=== PATIENT | female | born 1980 | race Caucasian/White ===

== ENCOUNTER 2022-11-21 13:15 | Emergency (ER) | payer MEDICAID ==
[~2022-11-21] VITALS: Ht 172.7 cm; Wt 105.7 kg
[2022-11-21 13:40] VITALS: BP 141/76
[2022-11-21] MEDS ORDERED: IBUPROFEN 600 MG TAB PO ONE (14:50)
--- NOTE | 2022-11-21 15:19 | NUR ---
AMB. TO BED 8 WITH NO ACUTE DISTRESS
[2022-11-21 15:43] LABS: BASOPHILS # (AUTO) 0.1 K/uL (0.00-0.22); BASOPHILS % (AUTO) 0.8 % (0.0-2.0); EOSINOPHILS # (AUTO) 0.1 K/uL (0-0.4); EOSINOPHILS % (AUTO) 1.3 % (0.0-4.0); HEMATOCRIT 35.2 % (36-48); HEMOGLOBIN 11.3 g/dL (12.0-16.0); LYMPHOCYTES # (AUTO) 2.6 K/uL (2.5-16.5); LYMPHOCYTES % (AUTO) 23.6 % (20.5-51.1); MEAN CORPUSCULAR HEMOGLOBIN 26 pg (27-31); MEAN CORPUSCULAR HGB CONC 32 g/dL (33-37); MEAN CORPUSCULAR VOLUME 81.6 fL (80-94); MONOCYTES # (AUTO) 0.7 K/uL (0.8-1.0); MONOCYTES % (AUTO) 6.7 % (1.7-9.3); NEUTROPHILS # (AUTO) 7.5 K/uL (1.8-7.7); NEUTROPHILS % (AUTO) 67.6 % (42.2-75.2); PLATELET COUNT (AUTO) 287 K/uL (140-450); RED BLOOD CELL COUNT(AUTO) 4.31 MIL/uL (4.20-5.40); RED CELL DISTRIBUTION WIDTH 15.9 % (11.6-13.7); WHITE BLOOD COUNT (AUTO) 11.1 K/uL (4.8-10.8)
[2022-11-21] MEDS ORDERED: IBUPROFEN 600 MG TAB ONE (15:59)
--- NOTE | 2022-11-21 16:11 | NUR ---
PT C/O CP X 1WK ON LT SIDE W/INCRESE PAIN AT TOUCH SINCE THIS AM. DENIES, ROSA, DIZZINESS, NVD. NAD.
[2022-11-21 16:21] LABS: ALBUMIN 3.7 g/dL (3.4-5.0); ANION GAP 12.8 (8-16); ASPARTATE AMINOTRANSFERASE 22 U/L (15-37); CARBON DIOXIDE 25.8 mmol/L (21-32); CHLORIDE 106 mmol/L (98-107); CREATININE 0.7 mg/dL (0.6-1.3); GFR ARICAN-AMERICAN 119 mL/min (>90); GLUCOSE 97 mg/dL (74-106); LIPASE 114 U/L (73-393); POTASSIUM 3.6 mmol/L (3.5-5.1); SODIUM SERUM 141 mmol/L (136-145); TOTAL BILIRUBIN 0.1 mg/dL (0.0-1.0); UREA NITROGEN, BLOOD 8 mg/dL (7-18)
--- NOTE | 2022-11-21 16:58 | NUR ---
PATIENT AMBULATED TO RESTROOM.
[2022-11-21] MEDS ORDERED: IBUP-2213 PO (17:09)
[2022-11-21 17:38] VITALS: BP 133/74
--- NOTE | 2022-11-21 17:40 | NUR ---
Patient discharged with v/s stable. Written and verbal after care instructions given. Patient alert, oriented and verbalized understanding of instructions. Ambulatory with steady gait. All questions addressed prior to discharge. ID band removed. Patient advised to follow up with PMD. Rx of IBUPROFEN 600MG given. Opportunity to ask questions provided and answered.
== END 2022-11-21 17:34 | disposition home or self-care (01) ==
LOC: MED 13:15
DX: R07.89 Other chest pain (principal); Z79.899 Other long term (current) drug therapy
CPT/HCPCS: 36415; 71045; 80053; 83690; 84484; 85025; 93005; 99285